=== PATIENT | female | born 1975 | race Caucasian/White ===

== ENCOUNTER 2019-05-13 22:21 | Emergency (ER) | payer BC ==
[~2019-05-13] VITALS: Ht 162.6 cm; Wt 72.6 kg
[2019-05-13 22:45] VITALS: BP_SYST 137
--- NOTE | 2019-05-13 22:45 | NUR ---
Pt ambulatory to bed 8 for evaluation
--- NOTE | 2019-05-13 23:00 | NUR ---
ER Dr. Grossman at bedside examining patient.
--- NOTE | 2019-05-13 23:00 | NUR ---
Pt came to the ED for intermittent for bilateral blurry vision for one week. Reports she had an episode of blurry vision while driving. States that she has a KRUSE occasionally due to "straining." Reports she has an appt with her primary on 05/16 and an eye doctor on 05/19. Denies n/v/d or fever. No other complaints/injuries noted. Will cont. to monitor.
[2019-05-14 00:21] VITALS: BP_SYST 137
--- NOTE | 2019-05-14 00:21 | NUR ---
Patient given written and verbal discharge instructions and verbalizes understanding. ER MD Dr. Grossman discussed with patient the results and treatment provided. Patient in stable condition. ID arm band removed. Patient educated on pain management and to follow up with PMD. Pain Scale 0/10. Opportunity for questions provided and answered. Medication side effect fact sheet provided.
== END 2019-05-14 00:21 | disposition home or self-care (01) ==
LOC: SED 22:21
DX: H53.8 Other visual disturbances (principal); R51 Headache
CPT/HCPCS: 70450-TC; 99284